=== PATIENT | male | born 1980 | race Hispanic/Latino ===

== ENCOUNTER 2018-01-04 18:48 | Emergency (ER) | payer SELFPAY ==
[2018-01-04] MEDS ORDERED: diphenhydrAMINE 25 MG CAP ONE (20:04)
== END 2018-01-04 20:16 | disposition home or self-care (01) ==
LOC: SCSER 18:48
DX: L50.9 Urticaria, unspecified (principal); Z79.899 Other long term (current) drug therapy
CPT/HCPCS: 99282

== ENCOUNTER 2020-10-20 10:25 | Emergency (ER) | payer OTHER, SELFPAY ==
[2020-10-20 11:08] LABS: #Eosinphils 0.1 thou/uL (0.0-0.7); #Lymphocytes 1.6 thou/uL (1.20-3.40); #Monocytes 0.4 thou/uL (0.11-0.59); #Neutrophils 4.7 thou/uL (1.40-6.50); %Basophils 0.6 % (0.0-1.0); %Eosinophils 1.2 % (0.0-10.0); %Monocytes 5.9 % (0.0-10.0); %Neutrophils 69.4 % (42.0-75.0); Hemoglobin 14.2 g/dL (14.0-18.0); Mean Corpuscular HGB CONC 35.2 g/dL (32.0-36.0); Mean Corpuscular Hemoglobin 29.5 pg (27.0-31.0); Mean Corpuscular Volume 83.7 fL (78.0-98.0); Mean Platelet Volume 6.1 fL (7.4-10.4); Platelet Count 257 thou/uL (130-400); RBC Distribution Width 11.2 % (11.5-14.5); Red Blood Cell (RBC) Count 4.81 mill/uL (4.70-6.10); White Blood Cell (WBC) Count 6.8 thou/uL (4.8-10.8)
--- NOTE | 2020-10-20 11:08 | RAD ---
Exam: Chest one view HISTORY:Epigastric pain. Intermittent. Comparison: None FINDINGS: Cardiac silhouette: Normal Aorta: Unremarkable Pulmonary vessels: Normal Costophrenic angles: Clear LUNGS: No masses or consolidation. Pneumothorax: None Osseous abnormalities: None IMPRESSION: No acute cardiopulmonary process.
[2020-10-20 11:22] LABS: Bacteria/HPF None Seen HPF (None Seen); Bilirubin Negative (Negative); Blood, Urine Negative (Negative); Clarity Clear (Clear); Glucose, Urine (Dipstick) Normal (Negative); Ketone, Urine 10 mg/dL (Negative); Leukocyte Negative Leu/uL (Negative); Nitrite Negative (Negative); Protein, Urine (Dipstick) 30 mg/dL (Neg-Trace); RBC/HPF None Seen HPF (0-3); Specific Gravity, Urine 1.017 (1.002-1.036); Squamous Epithelial None Seen HPF (0-3); Urobilinogen Normal mg/dL (Less than 2); WBC/HPF 0-3 HPF (0-3)
[2020-10-20 11:30] LABS: ALT (SGPT) 24 U/L (8-55); AST (SGOT) 21 U/L (5-34); Albumin 4.5 g/dL (3.5-5.0); Alkaline Phosphatase 96 U/L (40-110); Anion Gap 16 mmol/L (10-20); BUN (Urea Nitrogen) 7 mg/dL (8.9-20.6); Bilirubin, Total 0.7 mg/dL (0.2-1.2); Calc. Creatinine Clearance 0 mL/min (70-130); Calcium 8.9 mg/dL (7.8-10.44); Carbon Dioxide 25 mmol/L (22-29); Chloride 103 mmol/L (98-107); Glucose 111 mg/dL (70-105); Lipase 27 U/L (8-78); Potassium 3.7 mmol/L (3.5-5.1); Protein, Total 7.5 g/dL (6.0-8.3); Sodium 140 mmol/L (136-145)
== END 2020-10-20 12:06 | disposition home or self-care (01) ==
LOC: ERS 10:25
DX: R10.13 Epigastric pain (principal)
CPT/HCPCS: 36415; 71045; 80053; 81003; 81015; 83690; 85025; 93005

== ENCOUNTER 2023-01-09 14:30 | Emergency (ER) | payer OTHER, SELFPAY ==
[2023-01-09] MEDS ORDERED: HYDROcodone/Acetaminophen 10/325 mg Tablet ONE (15:19)
== END 2023-01-09 15:59 | disposition home or self-care (01) ==
LOC: ERS 14:30
DX: S16.1XXA Strain of muscle, fascia and tendon at neck level, initial encounter (principal); S00.83XA Contusion of other part of head, initial encounter; S40.012A Contusion of left shoulder, initial encounter; V89.2XXA Person injured in unspecified motor-vehicle accident, traffic, initial encounter
CPT/HCPCS: 70450; 72125